=== PATIENT | female | born 1985 | race Two or more races ===

== ENCOUNTER 2024-12-19 12:17 | Emergency (ER) | payer OTHER ==
[~2024-12-19] VITALS: Ht 175.3 cm; Wt 65.3 kg
[2024-12-19] MEDS ORDERED: KETOROLAC TROMETHAMINE 30 MG VIAL IM ONE (13:00)
[2024-12-19] MEDS ORDERED: IBUPROFEN600 MG PO (16:18)
== END 2024-12-19 17:39 | disposition home or self-care (01) ==
LOC: ER 12:17
DX: S90.31XA Contusion of right foot, initial encounter (principal); W18.39XA Other fall on same level, initial encounter; Y93.89 Activity, other specified; Y92.89 Other specified places as the place of occurrence of the external cause; Y99.9 Unspecified external cause status